=== PATIENT | male | born 1995 | race Caucasian/White ===

== ENCOUNTER 2017-11-13 17:45 | Inpatient (IN) | payer OTHER ==
[~2017-11-13] VITALS: Ht 188 cm; Wt 67.5 kg
[~2017-11-13 17:45] MED LIST: Aspirin PO; MET25T PO
[2017-11-13 18:36] LABS: Alanine Aminotransferase 33 U/L (16-61); Albumin 4.6 g/dL (3.4-5.0); Anion Gap 15 (5-15); Aspartate Aminotransferase 42 U/L (15-37); BUN/Creatinine Ratio 10.3; Blood Urea Nitrogen 13 mg/dL (7-18); Calcium 9.6 mg/dL (8.5-10.1); Carbon Dioxide 22 mmol/L (21-32); Chloride 102 mmol/L (98-107); GFR African American 90 mL/min; GFR Non-African American 75 mL/min; Glucose 144 mg/dL (74-106); Magnesium 2.5 mg/dL (1.6-2.6); Potassium 3.6 mmol/L (3.5-5.1); Sodium 139 mmol/L (136-145)
[2017-11-13 18:41] LABS: Alkaline Phosphatase 57 U/L (45-117); Bilirubin, Total 1.8 mg/dL (0.2-1.0); Total Protein 8.3 g/dL (6.4-8.2)
[2017-11-13 19:08] LABS: Basophils # (auto) 0 uL; Basophils % (auto) 0.7 % (0.0-2.0); Eosinophils # (auto) 0.1 uL; Lymphocytes # (auto) 2.7 uL; Monocytes # (auto) 0.5 uL; Nucleated Red Blood Cells % 0.3 %; White Blood Cell 7.3 10^3/uL (4.4-10.8)
[2017-11-13 19:10] LABS: Eosinophils % (auto) 1.8 % (0.0-7.0); Hematocrit 49.7 % (41.0-53.0); Hemoglobin 17.8 g/dL (13.5-17.5); Lymphocytes % (auto) 37.3 % (10.0-50.0); Mean Corpuscular Hgb Conc. 35.7 g/dL (32.0-36.0); Mean Corpuscular Volume 89.6 fL (80.0-100.0); Monocytes % (auto) 6.2 % (0.0-12.0); Platelet Count (auto) 284 10^3/uL (140-450); Red Blood Cells 5.55 10^6/uL (4.5-5.90); Red Cell Distribution Width 13.1 % (11.8-14.3)
[2017-11-13] MEDS ORDERED: MORPHINE SULFATE 4 MG/ML SYR/VIAL IV ONE (19:15)
[2017-11-13 21:36] LABS: Urine Amorphous Crystal FEW /hpf (None Seen); Urine Bacteria NONE SEEN /hpf (None Seen); Urine Blood Negative /uL (Negative); Urine Mucus FEW (None Seen); Urine Specific Gravity 1.013 (1.001-1.035); Urine WBC 5 /hpf (0 - 3)
[2017-11-13 21:46] LABS: Alcohol, Urine < 3.0 mg/dL (0-5); Amphetamine Screen, Urine NEGATIVE (NEGATIVE); Barbiturate Scree,Urine NEGATIVE (NEGATIVE); Benzodiazephine Screen, Urine NEGATIVE (NEGATIVE); Cannabinoid Screen, Urine NEGATIVE (NEGATIVE); Cocaine Screen, Urine NEGATIVE (NEGATIVE); Opiate Scree,Urine NEGATIVE (NEGATIVE); Phencyclidine Screen, Urine NEGATIVE (NEGATIVE)
[2017-11-14] MEDS ORDERED: ONDANSETRON HCL 4 MG/2 ML VIAL IV ONE
[2017-11-14] MEDS ORDERED: MORPHINE SULF INJ 2 MG/ML SYRINGE 1ML IV PRN ×2 (01:30)
[2017-11-14] MEDS ORDERED: NITROGLYCERIN 0.4 MG SL TAB SL PRN (01:30)
[2017-11-14] MEDS ORDERED: ACETAMINOPHEN 500 MG TAB PO PRN (01:30)
[2017-11-14] MEDS ORDERED: HYDROcodone-ACET 7.5/325MG TAB PO PRN (01:30)
[2017-11-14] MEDS ORDERED: ONDANSETRON HCL 4 MG/2 ML VIAL IV PRN (01:30)
[2017-11-14 04:10] VITALS: BP 130/76
[2017-11-14 08:00] VITALS: BP 96/56
[2017-11-14 09:00] VITALS: BP 96/56
[2017-11-14] MEDS ORDERED: ASPirin-EC 325mg tab PO SCH (10:00)
[2017-11-14 12:42] LABS: Basophils # (auto) 0 uL; Basophils % (auto) 0.4 % (0.0-2.0); Eosinophils # (auto) 0.1 uL; Eosinophils % (auto) 1.6 % (0.0-7.0); Hematocrit 41.9 % (41.0-53.0); Hemoglobin 14.6 g/dL (13.5-17.5); Lymphocytes # (auto) 1.6 uL; Lymphocytes % (auto) 28.2 % (10.0-50.0); Mean Corpuscular Hemoglobin 31.6 pg (28.0-32.0); Mean Corpuscular Hgb Conc. 34.9 g/dL (32.0-36.0); Mean Corpuscular Volume 90.6 fL (80.0-100.0); Monocytes # (auto) 0.4 uL; Neutrophils # (auto) 3.5 uL; Neutrophils % (auto) 62.8 % (37.0-80.0); Platelet Count (auto) 203 10^3/uL (140-450); Red Blood Cells 4.62 10^6/uL (4.5-5.90); White Blood Cell 5.5 10^3/uL (4.4-10.8)
[2017-11-14 12:54] LABS: BUN/Creatinine Ratio 9.4; Calcium 8.6 mg/dL (8.5-10.1); Potassium 3.9 mmol/L (3.5-5.1)
[2017-11-14 13:00] VITALS: BP 108/70
[2017-11-14 13:44] VITALS: BP 108/70
[2017-11-14 17:00] VITALS: BP 96/64
[2017-11-14 17:57] LABS: Cholesterol 99 mg/dL (< 200); HDL Cholesterol 53 mg/dL (40-59); LDL Cholesterol 50 mg/dL (< 100); Triglycerides 86 mg/dL (< 150)
== END 2017-11-14 19:25 | disposition home or self-care (01) | DRG 309 ==
LOC: ER 17:46 → TELE 17:47 → TELE-EAST 11-14 04:07
PROVIDERS: ADMIT Nurse Practitioner Family; ATTEND Internal Medicine
DX: I48.1 Persistent atrial fibrillation (principal); D68.69 Other thrombophilia; I45.4 Nonspecific intraventricular block; Z79.82 Long term (current) use of aspirin; Z82.49 Family history of ischemic heart disease and other diseases of the circulatory system; Z88.0 Allergy status to penicillin; Z88.1 Allergy status to other antibiotic agents
CPT/HCPCS: 36415; 71046; 80048; 80053; 80061; 80307; 81001; 83735; 84439; 84443; 84484; 85025; 86677; 93005; 93306; 96374; 96375; J2405